=== PATIENT | female | born 1960 | race African-American/Black ===

== ENCOUNTER 2020-01-16 09:47 | Emergency (ER) | payer OTHER ==
[~2020-01-16] VITALS: Ht 172.7 cm; Wt 76.2 kg
[2020-01-16 09:57] VITALS: BP 00/00
== END 2020-01-16 09:57 ==
LOC: M.ERS 09:47
DX: I46.9 Cardiac arrest, cause unspecified (principal); Z20.828 Contact with and (suspected) exposure to other viral communicable diseases